=== PATIENT | male | born 1990 | race Caucasian/White ===

== ENCOUNTER 2024-08-17 18:49 | Emergency (ER) | payer MEDICAID | END 2024-08-17 20:35 | disposition left against medical advice (07) | LOC: MW.ED 18:49 | DX: Z53.21 Procedure and treatment not carried out due to patient leaving prior to being seen by health care provider (principal) ==

== ENCOUNTER 2024-11-29 17:00 | Emergency (ER) | payer MEDICAID | END 2024-11-29 18:10 | disposition left against medical advice (07) | LOC: MW.ED 17:00 | DX: Z53.21 Procedure and treatment not carried out due to patient leaving prior to being seen by health care provider (principal) | CPT/HCPCS: 93005 ==

== ENCOUNTER 2025-03-07 11:29 | Day surgery (SDC) | payer MEDICAID ==
[~2025-03-07 11:29] MED LIST: Sodium Chloride 0.9% 10 ML Syringe FLUSH PRN; Sodium Chloride 0.9% 2.5 ML Syringe FLUSH PRN; Sodium Chloride 0.9% 20 ML SDV IV PRN
[2025-03-07] MEDS: Lactated Ringers 1,000 ML IV SCH (12:08)
[2025-03-07] MEDS ORDERED: propofoL 500 MG/50 ML 50 ML ONE (12:12)
[2025-03-07] MEDS ORDERED: Metoclopramide 10 MG/2 ML SDV ONE (12:16)
[2025-03-07] MEDS ORDERED: fentaNYL 100 MCG/2 ML SDV ONE (13:14)
[2025-03-07] MEDS ORDERED: Lidocaine 2% 5 ML SDV ONE (14:15)
== END 2025-03-07 14:57 | disposition home or self-care (01) ==
LOC: MW.SDS 11:29
PROVIDERS: ATTEND Surgery
DX: D12.3 Benign neoplasm of transverse colon (principal); K29.50 Unspecified chronic gastritis without bleeding; K21.9 Gastro-esophageal reflux disease without esophagitis; F32.A Depression, unspecified; F41.9 Anxiety disorder, unspecified; F17.290 Nicotine dependence, other tobacco product, uncomplicated
CPT/HCPCS: 43239; 45380; J2003; J2704; J3010; J7120; 00813; J2765

== ENCOUNTER 2025-05-28 18:50 | Emergency (ER) | payer MEDICAID | END 2025-05-28 20:20 | disposition home or self-care (01) | LOC: MW.ED 18:50 | DX: J32.9 Chronic sinusitis, unspecified (principal); F17.200 Nicotine dependence, unspecified, uncomplicated; K21.9 Gastro-esophageal reflux disease without esophagitis; E66.9 Obesity, unspecified; Z88.0 Allergy status to penicillin; Z79.899 Other long term (current) drug therapy; Z90.49 Acquired absence of other specified parts of digestive tract | CPT/HCPCS: 87426; 87651; 99283; A9270 ==

== ENCOUNTER 2025-09-02 16:22 | Emergency (ER) | payer MEDICAID | END 2025-09-02 17:42 | disposition home or self-care (01) | LOC: MW.ED 16:22 | DX: K04.7 Periapical abscess without sinus (principal); K03.81 Cracked tooth; K02.9 Dental caries, unspecified; E66.9 Obesity, unspecified; Z75.3 Unavailability and inaccessibility of health-care facilities; Z88.0 Allergy status to penicillin; Z90.49 Acquired absence of other specified parts of digestive tract; Z68.41 Body mass index [BMI] 40.0-44.9, adult | CPT/HCPCS: 99282; 99283 ==